=== PATIENT | female | born 1975 | race Caucasian/White ===

== ENCOUNTER → 2019-11-23 | Outpatient (CLI) | payer BC ==
--- NOTE | 2019-11-24 08:15 | MM ---
Reason for exam: clinical finding. History: Family history of breast cancer in mother at age 40. Saline implants, 2010. Physical Findings: Nurse Summary: 1.5cm nodule in the right beast at 6 o'clock, a 0.5cm nodule in the left breast at 1 o'clock and 2 o'clock (nurse dw). MG Diag Mamm Implants JB w CAD Bilateral CC, MLO, and ID view(s) were taken. The breast tissue is extremely dense which could obscure a lesion on mammography. Bilateral retropectoral silicone implants. Palpable marker on the right at 6 o'clock. Three marker on the left. Very dense tissues. These results were verbally communicated with the patient and result sheet given to the patient on 11/23/19. ASSESSMENT: Incomplete: need additional imaging evaluation, BI-RAD 0 RECOMMENDATION: Ultrasound of both breasts.
--- NOTE | 2019-11-24 08:18 | USB ---
Reason for exam: additional evaluation requested from abnormal screening. History: Family history of breast cancer in mother at age 40. Saline 2010. US Breast BILAT Right complete breast ultrasound includes all four quadrants, the retroareolar region and axilla. Finding demonstrates three mixed lesions measuring 0.5 x 0.3 x 0.4cm at 3 o'clock, 0.7 x 0.3 x 0.4cm at 4 o'clock and 0.7 x 0.4 x 0.7cm at 6 o'clock. Left complete breast ultrasound includes all four quadrants, the retroareolar region and axilla. Finding demonstrates three mixed lesions measuring 0.4 x 0.3 x 0.5cm at 5 o'clock, 0.7 x 0.3 x 0.6cm at 6 o'clock and 0.6 x 0.3 x 0.6cm at 6 o'clock, a 0.8 x 0.4 x 0.8cm cystic cluster at 2 o'clock and a 0.7cm hypoechoic lesion at the axilla. These results were verbally communicated with the patient and result sheet given to the patient on 11/23/19. ASSESSMENT: Probably benign, BI-RAD 3 RECOMMENDATION: Ultrasound of both breasts in 6 months. Manage patient on a clinical basis.
== END | disposition home or self-care (01) ==
LOC: RADMAMWWP 14:57
PROVIDERS: ATTEND Internal Medicine
DX: R92.8 Other abnormal and inconclusive findings on diagnostic imaging of breast (principal); N63.10 Unspecified lump in the right breast, unspecified quadrant; N63.20 Unspecified lump in the left breast, unspecified quadrant
CPT/HCPCS: 77066

== ENCOUNTER → 2022-12-14 | Outpatient (CLI) | payer OTHER ==
--- NOTE | 2022-12-18 09:00 | MM ---
Reason for Exam: Screening (asymptomatic). Last mammogram was performed 3 year(s) and 1 month(s) ago. Patient History: Menarche at age 12. First Full-Term at age 24. 2011, Implant(s). Mother had breast cancer, age 40. Risk Values: Dawna 5 year model risk: 1.8%. NCI Lifetime model risk: 17.3%. Prior Study Comparison: 11/23/2019 Bilateral Diagnostic Mammogram, [facility]. Tissue Density: The breast tissue is heterogeneously dense. This may lower the sensitivity of mammography. Findings: Analyzed By CAD. Bilateral breast implants are intact. There appear to be new microcalcifications inner lower right breast. Additional spot magnification compression views are recommended. Overall Assessment: Incomplete: need additional imaging evaluation, BI-RAD 0 Management: Diagnostic Mammogram of the right breast. . Patient should continue monthly self-breast exams. A clinical breast exam by your physician is recommended on an annual basis. This exam should not preclude additional follow-up of suspicious palpable abnormalities. Note on Dawna scores and lifetime risk: 1. A Dawna score greater than 3% is considered moderate risk. If this is the case, consider specialist referral to assess eligibility for a risk reducing agent. 2. If overall lifetime risk for the development of breast cancer is 20% or higher, the patient may qualify for future screening with alternating mammogram and breast MRI. Electronically signed and approved by: Star Isaac M.D. Radiologis
== END | disposition home or self-care (01) ==
LOC: RADMAMWWP 11:06
PROVIDERS: ATTEND Family Medicine
DX: Z12.31 Encounter for screening mammogram for malignant neoplasm of breast (principal); Z80.3 Family history of malignant neoplasm of breast
CPT/HCPCS: 77063; 77067

== ENCOUNTER → 2022-12-19 | Outpatient (CLI) | payer OTHER ==
--- NOTE | 2022-12-19 10:47 | MM ---
Reason for Exam: Additional evaluation requested from abnormal screening. Last screening mammogram was performed less than 1 month ago. Patient History: Menarche at age 12. First Full-Term at age 24. Patient has history of breast feeding. Patient tested for BRCA1 outcome was negative. 2010, Implant(s). Mother had breast cancer, age 40. Risk Values: Dawna 5 year model risk: 1.8%. NCI Lifetime model risk: 17.3%. Prior Study Comparison: 11/23/2019 Bilateral Diagnostic Mammogram, [facility]. 12/14/2022 Bilateral MG 3D screen mammo imp/cad., [facility]. Tissue Density: Right: The breast tissue is extremely dense which could obscure a lesion on mammography. Findings: Analyzed By CAD. Pattern appears stable. There are scattered regional punctate calcifications anterior right breast. No suspicious cluster microcalcifications. Implant displaced views were obtained. Follow-up right breast imaging including mag location views in 6 months is recommended. Overall Assessment: Probably benign, BI-RAD 3 Management: Diagnostic Mammogram of the right breast in 6 months. A negative mammogram report should not preclude additional follow up of suspicious palpable abnormalities. Patient should continue monthly self breast exam. A clinical breast exam by your physician is recommended on an annual basis and results should be correlated with mammographic findings. Electronically signed and approved by: Donn Harris D.O. Radiologis
== END | disposition home or self-care (01) ==
LOC: RADMAMWWP 10:09
PROVIDERS: ATTEND Family Medicine
DX: R92.8 Other abnormal and inconclusive findings on diagnostic imaging of breast (principal); Z80.3 Family history of malignant neoplasm of breast
CPT/HCPCS: 77061; 77065

== ENCOUNTER → 2023-07-23 | Outpatient (CLI) | payer OTHER ==
--- NOTE | 2023-07-23 09:32 | MM ---
Reason for Exam: Follow-up at short interval from prior study. Last screening mammogram was performed 7 month(s) ago. Patient History: Menarche at age 12. First Full-Term at age 24. Premenopausal. Patient has history of breast feeding. Patient tested for BRCA1 outcome was negative. 2010, Implant(s). Mother had breast cancer, age 40. Risk Values: Dawna 5 year model risk: 1.8%. NCI Lifetime model risk: 17.3%. Prior Study Comparison: 11/23/2019 Bilateral Diagnostic Mammogram, [facility]. 12/14/2022 Bilateral MG 3D screen mammo imp/cad., [facility]. 12/19/2022 Right MG 3D work up w/cad w/imp RT, [facility]. Tissue Density: Right: The breasts are heterogeneously dense, which may obscure small masses. Findings: Analyzed By CAD. Redemonstrated retropectoral silicone implant. Subtle group of calcifications central right breast just below the retroareolar plane on the MLO view remain unchanged for 6 months. Ongoing short interval follow-up recommended. Overall Assessment: Probably benign, BI-RAD 3 Management: Diagnostic Mammogram of both breasts in 6 months. Total one-year follow-up right breast and annual exam of the left breast. Given the patient's dense breast tissue, supplementary screening with breast ultrasound or breast MRI can be considered. Results were given to the patient verbally at the time of exam. Patient should continue monthly self-breast exams. A clinical breast exam by your physician is recommended on an annual basis. This exam should not preclude additional follow-up of suspicious palpable abnormalities. Note on Dawna scores and lifetime risk: 1. A Dawna score greater than 3% is considered moderate risk. If this is the case, consider specialist referral to assess eligibility for a risk reducing agent. 2. If overall lifetime risk for the development of breast cancer is 20% or higher, the patient may qualify for future screening with alternating mammogram and breast MRI. Electronically signed and approved by: Roshni Lizarraga M.D. Radiologist
== END | disposition home or self-care (01) ==
LOC: RADMAMWWP 07:56
PROVIDERS: ATTEND Family Medicine
DX: R92.331 Mammographic heterogeneous density, right breast (principal); N64.89 Other specified disorders of breast; R92.1 Mammographic calcification found on diagnostic imaging of breast; Z80.3 Family history of malignant neoplasm of breast; Z98.82 Breast implant status
CPT/HCPCS: 77061; 77065

== ENCOUNTER → 2024-02-13 | Outpatient (CLI) | payer OTHER ==
--- NOTE | 2024-02-13 09:00 | MM ---
Reason for Exam: Follow-up at short interval from prior study. Last mammogram was performed 1 year(s) and 2 month(s) ago. Patient History: Menarche at age 12. First Full-Term at age 24. Premenopausal. Patient has history of breast feeding. Patient tested for BRCA1 outcome was negative. 2011, Implant(s). Mother had breast cancer, age 40. Risk Values: Dawna 5 year model risk: 1.8%. NCI Lifetime model risk: 17.1%. Tissue Density: The breasts are extremely dense, which lowers the sensitivity of mammography. Findings: The pattern is symmetrical. Bilateral breast prostheses are present. There are scattered calcifications bilaterally. There are some segmental calcifications within the mid right breast present previously. No suspicious interval change is evident. No suspicious groups of microcalcifications, spiculated or lobular masses, architectural distortion or other secondary signs of malignancy are mammographically apparent. Overall Assessment: Benign, BI-RAD 2 Management: Screening Mammogram of both breasts in 1 year. A negative mammogram report should not preclude additional follow up of suspicious palpable abnormalities. Patient should continue monthly self breast exam. A clinical breast exam by your physician is recommended on an annual basis and results should be correlated with mammographic findings. Note on Dawna scores and lifetime risk: 1. A Dawna score greater than 3% is considered moderate risk. If this is the case, consider specialist referral to assess eligibility for a risk reducing agent. 2. If overall lifetime risk for the development of breast cancer is 20% or higher, the patient may qualify for future screening with alternating mammogram and breast MRI. [facility], , 02/13/2024 8:57 AM. Electronically signed and approved by: Donn Harris D.O. Radiologis
== END | disposition home or self-care (01) ==
LOC: RADMAMWWP 08:03
PROVIDERS: ATTEND Family Medicine
DX: R92.8 Other abnormal and inconclusive findings on diagnostic imaging of breast (principal); R92.343 Mammographic extreme density, bilateral breasts; Z80.3 Family history of malignant neoplasm of breast
CPT/HCPCS: 77062; 77066